=== PATIENT | male | born 1965 | race Hispanic/Latino ===

== ENCOUNTER 2023-10-26 06:10 | Observation (INO) | payer OTHER ==
[2023-10-25 10:44] LABS: BASOPHILS # (AUTO) 0.05 K/uL (0.00-0.20); BASOPHILS % (AUTO) 0.8 % (0.0-5.0); EOSINOPHILS # (AUTO) 0.12 K/uL (0.00-0.70); HEMATOCRIT 46.6 % (42-54); IMMATURE GRANULOCYTE ABSOLUTE 0.01 K/uL (0-1); LYMPHOCYTES # (AUTO) 1.7 K/uL (1.0-4.8); LYMPHOCYTES % (AUTO) 28.8 % (21.0-51.0); MEAN CORPUSCULAR HEMOGLOBIN 28.5 pg (27.0-33.0); MEAN CORPUSCULAR HGB CONC 33.9 g/dL (32.0-36.0); MONOCYTES # (AUTO) 0.6 K/uL (0.1-1.0); MONOCYTES % (AUTO) 9.3 % (3.0-13.0); NEUTROPHILS # (AUTO) 3.6 K/uL (1.8-7.7); NEUTROPHILS % (AUTO) 58.9 % (40.0-77.0); PLATELET COUNT (AUTO) 255 K/uL (130-400); RED BLOOD CELL COUNT(AUTO) 5.55 MIL/uL (4.50-6.20); RED CELL DISTRIBUTION WIDTH 13.7 % (11.0-15.5); WHITE BLOOD COUNT (AUTO) 6.1 K/uL (4.8-10.8)
[2023-10-25 11:02] LABS: ALBUMIN 4.2 g/dL (3.5-5.0); BILIRUBIN,TOTAL 1.3 mg/dL (0.2-1.0); CREATININE 0.9 mg/dL (0.5-1.3); POTASSIUM 3.9 mmol/L (3.5-5.1); TOTAL PROTEIN, SERUM 7.9 g/dL (6.0-8.3)
[2023-10-25 11:34] VITALS: BP 119/80; PULSE 76; RESP 18
[~2023-10-26] VITALS: Ht 170.2 cm; Wt 89.4 kg
[2023-10-26] VITALS (29 sets, daily range): BP systolic 102–141; BP diastolic 50–85; PULSE 53–91; RESP 7–20; O2SAT 97
[~2023-10-26 06:10] MED LIST: ATOR20TA65 PO; BENTYL PO; EMPA25TA PO; OMEP40CA21 PO; TRAZ-185 PO; ZOLP10TA2 PO
[2023-10-26] MEDS: CEFAZOLIN SODIUM 2 GM VIAL ONE (06:59)
[2023-10-26] MEDS: METRONIDAZOLE 500MG/100ML BAG 0 ML ONE (06:59)
[2023-10-26] MEDS: 0.9%NACL 1000ML 1,000 ML IV ONE (06:59)
[2023-10-26] MEDS ORDERED: BUPIVACAINE/PF 0.25% 30ML VIAL IJ ONE (07:07)
[2023-10-26] MEDS: INDOCYANINE GREEN 25 MG VIAL IJ ONE (07:08)
[2023-10-26] MEDS: MORPHINE 4 MG SYG ONE ×2 (07:13→10:42)
[2023-10-26] MEDS: ACETAMINOPHEN 1,000 MG/100 ML VIAL IV ONE (07:13)
[2023-10-26] MEDS ORDERED: MIDAZOLAM HCL 1 MG/ML 2ML VIAL ONE (07:20)
[2023-10-26] MEDS ORDERED: PROPOFOL 10 MG/ML 20ML VIAL IV ONE ×2 (07:20→08:25)
[2023-10-26] MEDS ORDERED: FENTANYL CITRATE PF 50 MCG/1 ML 2ML VIAL ONE (07:20)
[2023-10-26] MEDS ORDERED: ROCURONIUM BROMIDE 10MG/1ML 5ML VL ONE (07:21)
[2023-10-26] MEDS ORDERED: LIDOCAINE HCL MPF 1% 5ML VIAL ONE (07:21)
[2023-10-26] MEDS ORDERED: LIDOCAINE PF 100MG/5ML (2%) SYRINGE 5ML ONE (07:21)
[2023-10-26] MEDS: CEFAZOLIN SODIUM 2 GM VIAL IVPB ONE (08:20)
[2023-10-26] MEDS ORDERED: ONDANSETRON 4MG INJ ONE (08:23)
[2023-10-26] MEDS ORDERED: DEXAMETHASONE SOD PHOSPHATE 4 MG/ML 1ML VIAL ONE (08:23)
[2023-10-26] MEDS ORDERED: PHENYLEPHRINE HCL 10 MG/ML 1ML VIAL IV ONE (08:28)
[2023-10-26] MEDS ORDERED: NEOSTIGMINE METHYLSULFATE 1MG/ML IV ONE (08:31)
[2023-10-26] MEDS ORDERED: GLYCOPYRROLATE 0.2 MG/ML 5 ML VIAL ONE (08:31)
[2023-10-26] MEDS ORDERED: PROCHLORPERAZINE 10MG/2ML INJ IV PRN (10:00)
[2023-10-26] MEDS ORDERED: ONDANSETRON 4MG INJ IVP PRN (10:00)
[2023-10-26] MEDS: FENTANYL CITRATE PF 50 MCG/1 ML 2ML VIAL ONE (10:42)
[2023-10-26] MEDS: HYDROMORPHONE 1 MG INJ ONE (10:43)
[2023-10-26] MEDS: ENOXAPARIN SODIUM 30 MG/0.3 ML SQ SCH (12:51)
[2023-10-26] MEDS: LACTATED RINGERS 1000ML 1,000 ML IV SCH (12:52)
[2023-10-26] MEDS: HYDROMORPHONE 0.5 MG SYG (0.5MG/0.5ML) IVP PRN (13:22)
[2023-10-26] MEDS: KETOROLAC 30MG VIAL (30MG/ML) IV PRN (14:41)
[2023-10-26] MEDS: ZOLPIDEM TARTRATE 5 MG TAB PO SCH (21:36)
[2023-10-26] MEDS: TRAZODONE HCL 50 MG TAB PO SCH (21:36)
[2023-10-26] MEDS: HYDROCODONE/ACETAMINOPHEN 7.5/325 MG 15 ML UDCUP PO PRN (23:34)
[2023-10-27 04:00] VITALS: BP 99/58; PULSE 60; RESP 20
[2023-10-27 08:00] VITALS: BP 147/75; PULSE 79; RESP 18
[2023-10-27 08:30] VITALS: O2SAT 97
[2023-10-27 12:00] VITALS: BP 120/63; PULSE 69; RESP 18
[2023-10-27] MEDS: MORPHINE 2 MG SYG IVP ONE (12:21)
== END 2023-10-27 15:00 | disposition home or self-care (01) ==
LOC: DAH 06:10 → INTOOBSV 06:11 → DAH 06:11 → DAHIP 06:11 → 3AH 11:20
PROVIDERS: ADMIT Surgery; ATTEND Surgery
DX: K80.10 Calculus of gallbladder with chronic cholecystitis without obstruction (principal); K29.70 Gastritis, unspecified, without bleeding; K21.9 Gastro-esophageal reflux disease without esophagitis; E78.00 Pure hypercholesterolemia, unspecified; E11.9 Type 2 diabetes mellitus without complications; E78.2 Mixed hyperlipidemia; Z79.899 Other long term (current) drug therapy
CPT/HCPCS: 80053; 85025; 86850; 86900; 86901; 36415; 93005; 96374; 96376 ×2; 96372 ×2; 96375 ×2; 47563; 82948 ×5; 88304; 97161; 97116; A6260; J1100; G0378 ×29; G0379; A4600; J7030 ×2; A4215 ×2; J3010 ×2; J1170 ×6; J0665 ×2; J3490 ×3; J2001; J1650 ×3; J2250; J2704 ×2; J2405; J2270 ×3; J1885; J2710; J2371; J0690 ×2; G0168; A4223; A4222; A4221; A4663; J7120